=== PATIENT | female | born 1955 | race Caucasian/White ===

== ENCOUNTER → 2023-06-06 | Outpatient (CLI) | payer MEDICARE, SELFPAY ==
--- NOTE | 2023-06-06 11:20 | RAD_ITS ---
INDICATION: BILAT HIP PAIN EXAMINATION/TECHNIQUE: X-RAY - XR Hips Bilateral with Pelvis when performed; Min 5 Views COMPARISON: No relevant prior comparison study available FINDINGS: PELVIC BONES: No displaced fracture, destructive or sclerotic lesions. Note that overlapping bowel shadows may however obscure fine detail. Sacroiliac joints are unremarkable. No widening of the pubic symphysis. HIPS: The articular structures are unremarkable. No displaced fracture seen in this frontal view. SOFT TISSUES: No soft tissue swelling or gas. RAD/Hips B/L min 2 views w/ Pelvis IMPRESSION: No evidence of displaced pelvic or hip fracture. No significant degenerative changes. Electronically Signed: Adelfo Infante MD at 19:58 EDT ,
== END | disposition home or self-care (01) ==
LOC: RAD 11:17
PROVIDERS: PCP Family Medicine; Referring Provider Anesthesiology Pain Medicine; Visit Provider Anesthesiology Pain Medicine
DX: M25.551 Pain in right hip (principal); M25.552 Pain in left hip
CPT/HCPCS: 73521

== ENCOUNTER → 2024-01-02 | Outpatient (CLI) | payer MEDICARE, SELFPAY ==
--- NOTE | 2024-01-02 09:46 | ART_ITS ---
Reason For Study: PVD Procedure A bilateral lower extremity continuous wave Doppler with analog waveform analysis,segmental pressures,and ankle brachial indexes with exercise. Left Segmental Pressures Left brachial= 124mmHg. Left posterior tibial artery = 158mmHg. Left dorsalis pedis artery = 145mmHg. Left digit = 92 mmHg. Right Segmental Pressures Right brachial= 126mmHg. Right posterior tibial artery = 153mmHg. Right dorsalis pedis artery = 139mmHg. Right digit = 98 mmHg. Indices The right ankle brachial index by the posterior tibial artery is 1.21. The right ankle brachial index by the dorsalis pedis is 1.10. The right digital-brachial index is 0.78. The right post exercise ankle brachial index is 1.26. The left ankle brachial index by the posterior tibial artery is 1.25. The left ankle brachial index by the dorsalis pedis is 1.15. The left digital-brachial index is 0.73. The left post exercise ankle brachial index is 1.23. VL/Lower Ext Art Exam w/ Exercise Interpretation Summary Right CORNEL 1.21, normal. TBI and Doppler/PVR waveforms of the right leg normal a t rest. Right lower extremity exhibits normal response to exercise. Left CORNEL 1.25, normal. Doppler/PVR waveforms of the left leg normal at rest. TB I diminished, pedal/digit disease vs spasm Left lower extremity exhibits normal response to exercise. Ordering Physician: Delonte Hearn Referring Physician: Andrea Carpenter Performed By: Columba Iraheta RDCS/RVT
== END | disposition home or self-care (01) ==
LOC: CVS 09:42
PROVIDERS: PCP Family Medicine; Referring Provider Podiatrist; Visit Provider Podiatrist
DX: I73.89 Other specified peripheral vascular diseases (principal)
CPT/HCPCS: 93924

== ENCOUNTER 2024-02-03 05:47 | Day surgery (SDC) | payer MEDICARE, SELFPAY ==
[2024-02-03] VITALS (8 sets, daily range): BP systolic 88–118; BP diastolic 52–65; PULSE 59–66; RESP 16–18; TEMP 36–36.3; O2SAT 91–96; BMI 21.8
--- NOTE | 2024-02-03 06:30 | RAD_ITS ---
PROCEDURE: Intraoperative fluoroscopy for fusion of the first metatarsal tarsal phalangeal joint. DATE OF EXAMINATION: February 03, 2024 INDICATION: Female, 68 years old. Melbeta of calcaneal bone graft. RAD/Foot 2 Views IMPRESSION: Intraoperative imaging for fusion of the first metatarsophalangeal joint. Electronically Signed: Hudson Ackerman MD at 11:47 EDT ,
[2024-02-03] MEDS: Lactated Ringers 1,000 ML 15 ML IV (06:36)
[2024-02-03] MEDS: Cefazolin 2 GM in 0.9% Normal Saline (100mL Bag) 100 ML IV (07:30)
[2024-02-03] MEDS: Bupivacaine Mpf 0.5% 30 ML VIAL (09:04)
--- NOTE | 2024-02-03 09:21 | PCM.OPRPT ---
Problems Associated Problem List Diagnoses (1) Hallux valgus (acquired), left foot: (2) Hallux rigidus of left foot: Report of Operation Date of Procedure: 02/03/24 Pre-Operative Diagnosis: Hallux valgus with degenerative joint disease left first MPJ Post-Operative Diagnosis: Same Surgery/Procedure Performed:: Left foot harvest application of bone graft Left foot first MPJ fusion Left foot application of AO splint Description of Surgical Findings:: Due to advanced age severe deformity of hallux valgus and degeneration of the joint decision was made for first MPJ fusion. Patient agreed. The goal of this procedure is a 1 and done definitive correction of deformity and painful joint. Surgeon: Delonte Hearn delivery and installation subcontractor: None ([employer]ibel [employer]) Type of Anesthesia: General Special Medications: Popliteal block additional 10 cc for saphenous nerve Specimen's removed: None Drains: None Estimated Blood Loss (mL): 10 cc Description of Procedure: Patient brought back the operating placed comfortably in supine position. All osseous prominences offloaded prevent any compression neuropraxia's. Patient induced under general anesthesia. Left lower extremity was positioned with blankets to knock on external rotation well-padded left ankle tourniquet was applied. Left lower extremity was scrubbed prepped draped using typical aseptic fashion. Once cleared by anesthesia 10 cc half percent Marcaine plain were injected along the course of the saphenous nerve distally with local infiltration. Left lower extremity was elevated exsanguinated tourniquet was inflated to 250 mmHg. Procedure #1 [place] application of autologous calcaneal bone graft, left foot: Once cleared by anesthesia the calcaneal body was palpated and marked out superiorly and inferiorly. Care was taken to avoid the sural nerve a stab incision was made down to level of calcaneus with a #15 blade. The lateral calcaneal wall was then penetrated with a small bone curette and using increasingly larger bone curettes calcaneal cancellous autograft was curetted from the calcaneal body. Approximately 1 cc of graft was obtained. Site was then flushed with copious amounts of normal sterile saline. Graft was kept in a specimen container container and sent to the back table. Incision was closed with nylon using a 3 oh over and over stitch. The graft would be kept on the back table until later application at the first abuse if fusion site. Fluoroscopic imaging was used to confirm no violation of the calcaneal structure had occurred with graft harvest. Procedure #2 left first metatarsophalangeal joint arthrodesis: A dorsal medial incision just medial to the extensor hallucis longus tendon was marked out linearly crossing the first metatarsal phalangeal joint. This incision was made with a 15 blade through epidermis dermis into subcutaneous tissue. Blunt dissection was taken down to level of deep fascia and first MPJ capsule. Any bleeders were identified and cauterized. Important neurovascular structures identified and protected with blunt retraction. Once nerve was noted to be observed medially and this was protected throughout the entire case with blunt retraction using atraumatic technique. A linear capsulotomy was performed and the joint was then exposed dorsally medially laterally distally and proximally to allow for adequate visualization of the first metatarsal head and proximal phalangeal base. There is noted to be greater than 50% articular cartilage loss prominently at the plantar aspect of the first metatarsal phalangeal joint. Using Spotsetter cup and cone reamers the first metatarsal head articular cartilage was removed as well as the proximal phalangeal base. Incisional site was then flushed with copious amounts of normal sterile saline to room remove any fragments of articular cartilage interposing in the joint. Additional cleanout was performed using a sagittal saw removing any dorsal or medial exostoses and a right bone rongeur. Next subchondral drilling was performed to the proximal and distal aspects of the joint using a 2 oh drill bit. Once this was performed a temporary pin was placed to hold the first MPJ in a rectus alignment with reduced deformity. There is noted to be rectus frontal plane alignment. Slight 5 degree dorsiflexion relative the first ray of the proximal phalanxas as well as rectus alignment in the transverse plane with the hallux being parallel to the lesser digits. Next from distal medial to proximal lateral a 3 oh headless compression screw was placed using manufactures guidelines. Temporary fixation was removed. Dorsal plating performed with a [employer] Ortholoc plate. Combination of locking and nonlocking screws were placed using manufactures guidelines. Fluoroscopic imaging was used to confirm rectus alignment with adequate apposition of the joint and intact hardware placement. This was confirmed using AP medial oblique and lateral imaging. Tourniquet was let down total tourniquet time was noted to be 59 minutes. Incisional site was flushed with copious amounts normal sterile saline. Capsular closure performed with 6 continuous interlocking 3-0 Vicryl. Subcutaneous closure performed with simple interrupted buried 3-0 Vicryl. Skin closure performed with horizontal mattress 4-0 nylon. Incision dressed with Betadine Adaptic 4 x 4's Kerlix. Procedure #3 application AO splint left lower extremity: 2 layers of cast padding followed by 2 layers of 4 inch Rajesh wrap followed by 2 layers of cast padding followed by a layer of three 5 x 30 plaster splint in a U fashion was applied followed by an additional layer of three 5 x 30 plaster splint material in a sugar-tong fashion followed by a third layer and a posterior splint fashion with the foot and ankle held in a rectus position at approximately 90 degrees. This was secured with an overlying double 6 inch Rajesh. Patient was transported to PACU vital signs stable vascular status intact all digits for further monitoring prior to discharge. Patient tolerated procedure and anesthesia well in apparent satisfactory condition No complications Findings demonstrated rectus alignment first MPJ status post hallux valgus correction via first MPJ fusion no specimens Grafts/Implants Used: ortholock [employer] plate, 3.0 headless compression screw Admit VTE Documentation VTE Present on Admission: Yes VTE Pharm Prophylaxis ordered?: Yes
== END 2024-02-03 10:24 | disposition home or self-care (01) ==
LOC: SDC 05:49 → AC 05:50
PROVIDERS: PCP Family Medicine; Referring Provider Podiatrist; Visit Provider Podiatrist
PROC: (CPT 28750; principal; 2024-02-03 07:15)
DX: M20.12 Hallux valgus (acquired), left foot (principal); I11.0 Hypertensive heart disease with heart failure; I50.9 Heart failure, unspecified; J44.9 Chronic obstructive pulmonary disease, unspecified; I48.0 Paroxysmal atrial fibrillation; M20.22 Hallux rigidus, left foot; M19.90 Unspecified osteoarthritis, unspecified site; F17.210 Nicotine dependence, cigarettes, uncomplicated; F41.9 Anxiety disorder, unspecified; G47.33 Obstructive sleep apnea (adult) (pediatric); F32.A Depression, unspecified; K21.9 Gastro-esophageal reflux disease without esophagitis; E78.00 Pure hypercholesterolemia, unspecified; Z79.51 Long term (current) use of inhaled steroids; Z79.01 Long term (current) use of anticoagulants; Z79.899 Other long term (current) drug therapy; Z99.81 Dependence on supplemental oxygen
CPT/HCPCS: 28750; 28270; 29515; 20900; 64445; 01480; 73620; 76000; C1713; J7120; J2405

== ENCOUNTER → 2024-08-08 | Outpatient (CLI) | payer MEDICARE, SELFPAY ==
--- NOTE | 2024-08-08 13:31 | RAD_ITS ---
INDICATION: LEFT HIP PAIN EXAMINATION/TECHNIQUE: X-RAY - LEFT XR Hip Unilateral with Pelvis when performed; 2-3 Views COMPARISON: None. FINDINGS: No acute fracture or malalignment. No blastic or lytic lesions. There are mild degenerative changes. The soft tissues are unremarkable. RAD/HIP, UNI W/ Pelvis 2-3 Views IMPRESSION: No acute radiographic abnormalities. Electronically Signed: Julio Peres MD at 17:20 EDT ,
== END | disposition home or self-care (01) ==
PROVIDERS: PCP Family Medicine; Referring Provider Anesthesiology Pain Medicine; Visit Provider Anesthesiology Pain Medicine
DX: M16.12 Unilateral primary osteoarthritis, left hip (principal)
CPT/HCPCS: 73502

== ENCOUNTER → 2024-09-03 | Outpatient (CLI) | payer MEDICARE, SELFPAY ==
--- NOTE | 2024-09-03 14:18 | MRI_ITS ---
EXAM: MR LUMBAR SPINE WITHOUT INTRAVENOUS CONTRAST CLINICAL INDICATION: RADICULOPATHY TECHNIQUE: Multiplanar and multisequence MR images of the lumbar spine without intravenous contrast. COMPARISON: MRI lumbar spine, 03/29/2008. FINDINGS: VERTEBRAE: Postoperative and degenerative changes are partially visualized in the cervical region and mild degenerative changes are visualized throughout the thoracic spine. There is preservation of the normal lumbar lordosis. No fracture or spondylolysis. No evidence of spondylolisthesis. No suspicious marrow space signal abnormality is identified. SPINAL CORD: No significant abnormality. Normal position and signal intensity of the conus medullaris. SOFT TISSUES: No significant abnormality. DISCS/SPINAL CANAL/NEURAL FORAMINA: L1-L2: Mild bilateral facet arthrosis. No disc herniation, spinal canal stenosis, or neural foraminal narrowing. L2-L3: Disc height loss and disc desiccation. Disc bulge with left foraminal to extraforaminal disc herniation and moderate bilateral facet arthrosis. Mild to moderate left and mild right neural foraminal narrowing. Mild spinal canal stenosis. L3-L4: Disc height loss and disc desiccation. Central disc herniation superimposed upon a disc bulge and moderate bilateral facet arthrosis. Mild spinal canal stenosis and mild bilateral neural foraminal narrowing. L4-L5: Disc bulge with superimposed left foraminal to extraforaminal disc herniation and moderate to severe bilateral facet arthrosis. Mild to moderate spinal canal stenosis, moderate left neural foraminal narrowing, and mild to moderate right neural foraminal narrowing. Impingement of the right L5 nerve root and impingement of the extraforaminal left L4 nerve root. L5-S1: Mild bilateral facet arthrosis. No disc herniation, spinal canal stenosis, or neural foraminal narrowing. MRI/Spine Lumbar (Routine) IMPRESSION: Multilevel degenerative changes of the lumbar spine, mildly progressed since 2008 comparison examination. Multilevel spinal canal and neural foraminal stenosis. Left L4 and right L5 nerve root impingement. Correlate for associated radiculopathy or other symptoms and consider spine surgery consultation if not already performed. Electronically Signed: Santhosh Fajardo DO at 23:18 EDT ,
== END | disposition home or self-care (01) ==
PROVIDERS: PCP Family Medicine; Referring Provider Anesthesiology Pain Medicine; Visit Provider Anesthesiology Pain Medicine
DX: M47.816 Spondylosis without myelopathy or radiculopathy, lumbar region (principal)
CPT/HCPCS: 72148

== ENCOUNTER 2025-03-15 07:33 | Day surgery (SDC) | payer MEDICARE, SELFPAY ==
--- NOTE | 2025-03-04 12:23 | PAT.ANESEVAL ---
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 When Was Last Pacemaker Check QUESTION #4 FULL TEXT: You/Your Family Experience fever (hyperthermia) with Anesthesia Last Oral Intake Last Oral intake: Last Oral Intake NPO since Meds taken in AM with sips of water? Meds patient instructed to take am of surgery PONV PONV - tank setter helper: PONV - tank setter helper Female Yes 03/01/25 15:15 HX of Motion Sickness No 03/01/25 15:15 HX of N/V After Surgery No 03/01/25 15:15 Non-Smoker No 03/01/25 15:15 Duration of Surgery greater Yes 03/01/25 15:15 than 60 minutes Number of Risk Factors 2 03/01/25 15:15 PONV Score Moderate Risk 03/01/25 15:15 Height & Weight Height & Weight: Anesthesia: Height & Weight Height 5 ft 5 in 11/22/24 14:05 Respiratory Assessment Respiratory Assessment - tank setter helper: Respiratory Tract Infection Hx - tank setter helper Hx Respiratory Tract Infection No 03/01/25 15:15 STOP Sleep Apnea STOP Sleep Apnea - tank setter helper: STOP Sleep Apnea - tank setter helper Hx Hypertension Yes: UP AND DOWN EVEN WITH 03/01/25 15:15 MEDS Hx Sleep Apnea Yes 03/01/25 15:15 CPAP No 03/01/25 15:15 BIPAP Yes: WITH O2 2L 03/01/25 15:15 Do you snore loudly (louder than talking or can be heard Do you often feel tired/ fatigued/ sleepy during daytime? Has anyone observed you stop breathing during sleep? STOP Results Positive 03/01/25 15:15 QUESTION #5 FULL TEXT : Do you snore loudly (louder than talking or can be heard through closed doors)? Tobacco Use History Tobacco Use History - tank setter helper: Tobacco Use History - tank setter helper Tobacco Use Smoking Status Current every day smoker 03/01/25 15:15 Hx Tobacco Use Yes 03/01/25 15:15 Years Smoking Packs Smoked per Day Smoking Cessation Date was within the last 15 years Hx Smoking Cessation Date Hx Smoking Cessation Counseling Hematologic Medial History Hematologic Hx - tank setter helper: Hematologic Medical Hx - digital sales executive Hx of Blood Transfusion No 03/01/25 15:15 Hx of Transfusion in last 3 No 03/01/25 15:15 Months Date of Last Transfusion (if within last 3 months) Ever experience any problems No 03/01/25 15:15 with transfusion(s)? Specify any problems Hx of Preganancy in last 3 No 03/01/25 15:15 Months Nurse Filling Out Transfusion DSCHRIBER 03/01/25 15:15 & Questions: Date: 03/01/25 03/01/25 15:15 Time: 15:18 03/01/25 15:15 Patient unable to answer at this time (ie. confused, unrespo /Reproduction History /Reproductive History - tank setter helper: /Reproductive Hx- tank setter helper Hx Now No 03/01/25 15:15 Gestational Age (in weeks): EDC: Hx Hx Para Hx Section SAB No 03/01/25 15:15 PFSH Medical History (Updated 03/01/25 @ 15:23 by Jany Jacobo) Hx of being hospitalized History of CHF (congestive heart failure) Wears glasses Wears dentures Post-menopausal Depression Anxiety Arthritis Easy bruising High cholesterol Pain Back pain DDD (degenerative disc disease) History of hiatal hernia History of ulceration History of IBS Gastric reflux Smoker On home oxygen therapy BiPAP (biphasic positive airway pressure) dependence COPD (chronic obstructive pulmonary disease) Shortness of breath on exertion Leg cramps History of pain when walking History of edema History of cardioversion History of echocardiogram History of stress test Hypertension Cardiology follow-up encounter History of atrial fibrillation Home Medications ?Medication ?Instructions ?Recorded ?Last Taken ?Type albuterol sulfate 2.5 mg/3 mL 2.5 mg inhalation BID shortness of 01/25/24 02/03/24 History (0.083 %) solution for nebulization breath or wheezing albuterol sulfate 90 mcg/actuation 2 puff inhalation 4X/DAY PRN PRN 01/25/24 02/03/24 History aerosol inhaler shortness of breath or wheezing alprazolam 1 mg tablet 1 mg PO BID 01/25/24 02/03/24 History apixaban 5 mg tablet (Eliquis) 5 mg PO BID 01/25/24 Unknown History budesonide-formoterol HFA 160 2 puff inhalation BID 01/25/24 01/29/24 History mcg-4.5 mcg/actuation aerosol inhaler (Symbicort) conjugated estrogens 0.625 mg/gram 1 applic vaginal MOWEFR 01/25/24 02/01/24 History vaginal cream (Premarin) escitalopram oxalate 10 mg tablet 10 mg PO DAILY 01/25/24 02/02/24 History esomeprazole magnesium 40 mg 40 mg PO DAILY 01/25/24 02/03/24 History capsule,delayed release ezetimibe 10 mg tablet 10 mg PO DAILY 01/25/24 02/02/24 History losartan 25 mg tablet 50 mg PO DAILY 01/25/24 02/03/24 History mirtazapine 15 mg tablet 15 mg PO QHS 01/25/24 02/02/24 History roflumilast 500 mcg tablet 500 mcg PO DAILY 01/25/24 02/03/24 History tiotropium bromide 2.5 1 puff inhalation DAILY 01/25/24 02/03/24 History mcg/actuation mist for inhalation (Spiriva Respimat) zolpidem 10 mg tablet 10 mg PO QHS 01/25/24 02/02/24 History metoprolol tartrate 50 mg tablet 50 mg PO BID 03/01/25 Unknown History Allergy/AdvReac Type Severity Reaction Status Date / Time No Known Allergies Allergy Verified 03/01/25 15:09 Surgical History (Updated 01/18/25 @ 10:24 by Jany Jacobo) Hx of toe surgery Hx of right cataract extraction Hx of left cataract extraction History of esophagogastroduodenoscopy (EGD) Hx of colonoscopy Hx of anterior cruciate ligament surgery Hx of decompression of ulnar nerve Hx laparoscopic cholecystectomy Hx of fusion of cervical spine Hx of abdominal hysterectomy Social History Smoking Status: Current every day smoker tobacco type: cigarettes Audit: Pertinent Findings Pertinent Findings EKG Perinent findings: 02/07/2025. Sinus rhythm 62 bpm right bundle branch block. Echo (EF%) pertinent findings: 11/09/2019. EF 59%. Persistent atrial fibrillation. Consult pertinent findings: Cardiology follow-up visit 02/07/2025. [facility]. Stable from a cardiac standpoint. Continue current medications. Paroxysmal atrial fibrillation. Primary hypertension. Hypertensive heart disease with history of heart failure. Recommendation Anesthesia Recommendation Anesthesia recommendation: OPTIMIZED for anesthesia
[2025-03-15] VITALS (9 sets, daily range): BP systolic 89–123; BP diastolic 54–87; PULSE 52–64; RESP 16–18; TEMP 36.6–37.1; O2SAT 94–99; BMI 20.4
[2025-03-15] MEDS: Lactated Ringers 1,000 ML 15 ML IV (08:08)
--- NOTE | 2025-03-15 08:30 | RAD_ITS ---
EXAM: DX foot two views CLINICAL HISTORY: Hardware removal left metatarsophalangeal joint COMPARISON: 02/03/2024 TECHNIQUE: Fluoroscopy with 1 spot image FINDINGS: Fluoroscopy time 0.55 min:sec Cumulative dose 0.28 mGy Single spot image shows removal of plate, screws and cannulated screw previously fusing the 1st metatarsal phalangeal joint. Please see operative report for further detail. RAD/Foot 2 Views IMPRESSION: Fluoroscopy as above. Reading Location: [id number]
--- NOTE | 2025-03-15 08:47 | PRE.ANES_ITS ---
ASA Classification* ASA Classification ASA Classification: 3 Assessment & Plan Anesthesia* Anesthesia Assessment Anesthesia Assessment: Discussed sedation and/or anesthesia options, risks, benefits, and alternatives with patient/parents/legal guardian/POA. Questions invited. The patient/parents/legal guardian/POA seems to understand and agrees to proceed with anesthesia plan. Reviewed the physical assessment, medical history, allergy history and patient home medications list prior to surgery/procedure/anesthetic and documented any changes. Performed airway and anesthesia risk assessments. 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 When Was Last Pacemaker Check QUESTION #4 FULL TEXT: You/Your Family Experience fever (hyperthermia) with Anesthesia Last Oral Intake Last Oral intake: Last Oral Intake NPO since 05:10 03/15/25 08:04 Meds taken in AM with sips of Yes 03/15/25 08:04 water? 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 Female Yes 03/01/25 15:15 HX of Motion Sickness No 03/01/25 15:15 HX of N/V After Surgery No 03/01/25 15:15 Non-Smoker No 03/01/25 15:15 Duration of Surgery greater Yes 03/01/25 15:15 than 60 minutes Number of Risk Factors 2 03/01/25 15:15 PONV Score Moderate Risk 03/01/25 15:15 Height & Weight Height & Weight: Anesthesia: Height & Weight Height 5 ft 5 in 03/15/25 08:04 Weight: 55.7 kg 03/15/25 08:04 Body Mass Index (BMI) 20.4 03/15/25 08:04 Respiratory Assessment Respiratory Assessment - chinchilla machine operator: Respiratory Tract Infection Hx - 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 Has anyone observed you stop breathing during sleep? STOP Results Positive 03/01/25 15:15 QUESTION #5 FULL TEXT : Do you snore loudly (louder than talking or can be heard through closed doors)? 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 Specify any problems Hx of Preganancy in last 3 No 03/01/25 15:15 Months Nurse Filling Out Transfusion [email or web address] 03/01/25 15:15 & Questions: Date: 03/01/25 03/01/25 15:15 Time: 15:18 03/01/25 15:15 Patient unable to answer at this time (ie. 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 machine operator: /Reproductive Hx- chinchilla machine operator Hx Now No 03/01/25 15:15 Gestational Age (in weeks): EDC: Hx Hx Para Hx Section SAB No 03/01/25 15:15 Active Medications Active Medications: Current Medications Generic Name Dose Route Start Last Admin Trade Name Freq PRN Reason Stop Dose Admin Cefazolin Sodium 2 gm/ Sodium 110 mls @ 150 mls/hr 03/15/25 09:10 Chloride IV 03/15/25 09:53 INTRAOP ONE Lactated Ringer's 1,000 mls @ 15 mls/hr 03/15/25 07:45 03/15/25 08:08 IV 15 mls/hr .Q48H FARNAZ Administration PFSH Medical History Hx of being hospitalized History of CHF (congestive heart failure) Wears glasses Wears dentures Post-menopausal Depression Anxiety Arthritis Easy bruising High cholesterol Pain Back pain DDD (degenerative disc disease) History of hiatal hernia History of ulceration History of IBS Gastric reflux Smoker On home oxygen therapy BiPAP (biphasic positive airway pressure) dependence COPD (chronic obstructive pulmonary disease) Shortness of breath on exertion Leg cramps History of pain when walking History of edema History of cardioversion History of echocardiogram History of stress test Hypertension Cardiology follow-up encounter History of atrial fibrillation Home Medications ?Medication ?Instructions ?Recorded ?Last Taken ?Type albuterol sulfate 2.5 mg/3 mL 2.5 mg inhalation BID sh ortness of 01/25/24 02/03/24 History (0.083 %) solution for nebulization breath or wheezing albuterol sulfate 90 mcg/actuation 2 puff inhalation 4 X/DAY PRN PRN 01/25/24 02/03/24 History aerosol inhaler shortness of breath or wheez ing alprazolam 1 mg tablet 1 mg PO BID 01/25/24 5 History apixaban 5 mg tablet (Eliquis) 5 mg PO BID 01/25/24 History budesonide-formoterol HFA 160 2 puff inhalation BID 01/29/24 History mcg-4.5 mcg/actuation aerosol inhaler (Symbicort) conjugated estrogens 0.625 mg/gram 1 applic vaginal MO WEFR 01/25/24 02/01/24 History vaginal cream (Premarin) escitalopram oxalate 10 mg tablet 10 mg PO DAILY 01/2402/02/24 History esomeprazole magnesium 40 mg 40 mg PO DAILY 01/25/24 0 03/15/25 History capsule,delayed release ezetimibe 10 mg tablet 10 mg PO DAILY 01/25/2408/01 History losartan 25 mg tablet 50 mg PO DAILY 01/25/2408/01 History mirtazapine 15 mg tablet 15 mg PO QHS 01/25/24 History roflumilast 500 mcg tablet 500 mcg PO DAILY 01/25/24 0 02/03/24 History tiotropium bromide 2.5 1 puff inhalation DAILY 01/0602/03/24 History mcg/actuation mist for inhalation (Spiriva Respimat) zolpidem 10 mg tablet 10 mg PO QHS 01/25/24 History metoprolol tartrate 50 mg tablet 50 mg PO BID 03/01/25 03/15/25 History Allergy/AdvReac Type Severity Reaction Status Date / Time No Known Allergies Allergy Verified 03/15/25 07:58 Surgical History (Updated 01/18/25 @ 10:24 by Jany Jacobo) Hx of toe surgery Hx of right cataract extraction Hx of left cataract extraction History of esophagogastroduodenoscopy (EGD) Hx of colonoscopy Hx of anterior cruciate ligament surgery Hx of decompression of ulnar nerve Hx laparoscopic cholecystectomy Hx of fusion of cervical spine Hx of abdominal hysterectomy Social History Smoking Status: Current every day smoker tobacco type: cigarettes Review of Systems (Anesthesia) ROS Narrative System reviewed and no additional complaints, except as documented. Physical Exam Const alert and oriented x3 Resp Effort and Inspection: decreased respiratory effort
[2025-03-15] MEDS: Cefazolin 2 GM in 0.9% Normal Saline (100mL Bag) 100 ML IV (09:05)
[2025-03-15] MEDS: Bupivacaine Mpf 0.5% 30 ML VIAL (09:07)
--- NOTE | 2025-03-15 10:02 | OP.PCM_ITS ---
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 Missile Technician: milly gamboa Tasks completed by front end assistant: Opening, Closing, Hemostasis: Tie and Hemostasis: Electrocautery Type of Anesthesia: MAC/Supplemental/Local RN Documented Start/Stop Times: Operation Date: 03/15/25 09:10 Case Time Into Pre-Op 03/15/25 07:38 Anesthesia Start 03/15/25 08:59 Into Room 03/15/25 08:59 Procedure Start 03/15/25 09:13 Procedure End 03/15/25 10:10 Anesthesia End 03/15/25 10:14 Out of Room 03/15/25 10:14 Procedure Start Time: 09:00 Procedure Stop Time: 10:25 Select all DRAINS/GRAFTS/IMPLANTS that apply: None Estimated Blood Loss: 20cc Specimen collected: No Description of surgery: Procedure: Left 1st Metatarsophalangeal Joint (MPJ) Hardware Removal Preoperative Diagnosis: Status post 1st MPJ arthrodesis with symptomatic dorsal plate and interfragmentary screw Postoperative Diagnosis: Same Anesthesia: Regional anesthesia via Rodriguez block with 30cc of 0.5% Marcaine plain Tourniquet: Ankle tourniquet inflated to [Pressure] mmHg; total tourniquet time: [Duration] minutes Procedure Details: The patient was brought to the operating room and placed in the supine position. Following administration of regional anesthesia via Rodriguez block, the left lower extremity was prepped and draped in the usual sterile fashion. An ankle tourniquet was applied and inflated. A dorsal incision was made over the first MPJ along the prior surgical scar. Dissection was carried down through subcutaneous tissue, and the hardware was identified. The dorsal plate and interfragmentary screw were carefully removed without complication. The previously fused 1st MPJ was inspected and noted to be solidly fused and in rectus alignment. Screw voids were filled with Mayer Vitoss bone graft substitute. The surgical site was copiously irrigated with sterile saline. Deep closure was performed with 4-0 Monocryl. The skin was closed with interrupted 4-0 Nylon sutures. The wound was dressed with Betadine, Adaptic, dry sterile gauze, and an ELIAS wrap. Estimated Blood Loss: Minimal Complications: None Condition at End of Procedure: Stable and satisfactory Surgical Findings: dictated above Complications Complications: No
--- NOTE | 2025-03-15 10:20 | PCM.POST.ANE ---
Anesthesia: Postop Eval I Current Vital Signs Temperature: 97.8 F Pulse Rate: 52 Blood Pressure: 91/60 Respiratory Rate: 16 Pulse Ox: 99 Oxygen Delivery Method: Room Air Assessment Airway patent: Yes Spontaneous unlabored respirations: Yes Mental status: Awake and Calm nausea: No Vomiting: No Anesthesia Complication: No Fluid Hydration Crystalloid volume administer (ml): 600 Total IV fluid infused: 600 Progress Note Anesthesia document: Postop Eval 1 completed: Yes
--- NOTE | 2025-03-15 11:02 | POSTOPAN2_ITS ---
Anesthesia Postop Eval I Sum Postop Eval Completion status Anesthesia document: Postop Eval 1 completed: Yes Anesthesia Postop Eval I Summary Anesthesia Postop Eval I Summary: Anesthesia Postop Eval I: Assessment Summary Airway patent Yes 03/15/25 10:21 [email or web address] Spontaneous unlabored Yes 03/15/25 10:21 [email or web address] respirations Mental status Awake,Calm 03/15/25 10:21 [email or web address] nausea No 03/15/25 10:21 [email or web address] Vomiting No 03/15/25 10:21 [email or web address] Anesthesia Postop Eval I: Fluid Summary Crystalloid volume administer 600 03/15/25 10:21 [email or web address] (ml) Colloids volume administered ( ml) Blood Product volume administered (ml) Total IV fluid infused 600 03/15/25 10:21 [email or web address] Anesthesia Postop Eval I: Summary Notes Anesthesia Complication No 03/15/25 10:21 [email or web address] Anesthesia Complication Comment: Post-operative progress note Anesthesia: Postop Eval II Evaluation Mental status: Awake and Calm Pain Level: 0 nausea: No Vomiting: No
--- NOTE | 2025-03-15 11:02 | PCM.POSTANE2 ---
Anesthesia Postop Eval I Sum Postop Eval Completion status Anesthesia document: Postop Eval 1 completed: Yes Anesthesia Postop Eval I Summary Anesthesia Postop Eval I Summary: Anesthesia Postop Eval I: Assessment Summary Airway patent Yes 03/15/25 10:21 INSPECTOR PACKER GLASS [email or web address] Spontaneous unlabored Yes 03/15/25 10:21 INSPECTOR PACKER GLASS [email or web address] respirations Mental status Awake,Calm 03/15/25 10:21 INSPECTOR PACKER GLASS [email or web address] nausea No 03/15/25 10:21 INSPECTOR PACKER GLASS [email or web address] Vomiting No 03/15/25 10:21 INSPECTOR PACKER GLASS [email or web address] Anesthesia Postop Eval I: Fluid Summary Crystalloid volume administer 600 03/15/25 10:21 INSPECTOR PACKER GLASS [email or web address] (ml) Colloids volume administered ( ml) Blood Product volume administered (ml) Total IV fluid infused 600 03/15/25 10:21 INSPECTOR PACKER GLASS [email or web address] Anesthesia Postop Eval I: Summary Notes Anesthesia Complication No 03/15/25 10:21 INSPECTOR PACKER [email or web address] Anesthesia Complication Comment: Post-operative progress note Anesthesia: Postop Eval II Evaluation Mental status: Awake and Calm Pain Level: 0 nausea: No Vomiting: No
== END 2025-03-15 11:35 | disposition home or self-care (01) ==
LOC: SDC 07:34 → AC 07:35
PROVIDERS: PCP Family Medicine; Referring Provider Podiatrist; Visit Provider Podiatrist
PROC: (CPT 20680; principal; 2025-03-15 08:55)
DX: T84.84XA Pain due to internal orthopedic prosthetic devices, implants and grafts, initial encounter (principal); I11.0 Hypertensive heart disease with heart failure; I50.9 Heart failure, unspecified; J44.9 Chronic obstructive pulmonary disease, unspecified; I48.0 Paroxysmal atrial fibrillation; Y79.2 Prosthetic and other implants, materials and accessory orthopedic devices associated with adverse incidents; G47.33 Obstructive sleep apnea (adult) (pediatric); F41.9 Anxiety disorder, unspecified; F33.42 Major depressive disorder, recurrent, in full remission; K21.9 Gastro-esophageal reflux disease without esophagitis; E78.00 Pure hypercholesterolemia, unspecified; F17.210 Nicotine dependence, cigarettes, uncomplicated; Z79.01 Long term (current) use of anticoagulants; Z79.899 Other long term (current) drug therapy
CPT/HCPCS: 20680; 01480; 73620; 76000; C1713